=== PATIENT | female | born 1955 | race Caucasian/White ===

== ENCOUNTER 2020-06-04 20:22 | Emergency (ER) | payer BC ==
[2020-06-04] MEDS ORDERED: Sodium Chloride 0.9% 1,000 ML IV SCH ×2 (21:15→22:30)
--- NOTE | 2020-06-04 21:16 | EDM.PDOC ---
ED HPI GENERAL MEDICAL PROBLEM - General Chief Complaint: General Stated Complaint: LIGH HEADED Time Seen by Provider: 06/04/20 21:16 Source of Information: Reports: Patient History Limitations: Reports: No Limitations - History of Present Illness INITIAL COMMENTS - FREE TEXT/NARRATIVE: pt arrived with ahistory of being out on the [place] for about 6 hours. She had 3 beers and did not drink alot of other fluids. She came in and was sitting in the cabin which was fairly hot. She suddenly was staring off into space and then her head flopped to the side. She was like this for 3-4 minutes and then she was better. She did have a similar episode about 15 years ago. She did not have a headache. Her did not see seizure like activity. Onset: Today, Sudden Duration: Hour(s): Location: Reports: Generalized, Other (pt was very weak from the point that she had the episode. ) Associated Symptoms: Reports: Syncope - Related Data Allergies Allergy/AdvReac Type Severity Reaction Status Date / Time No Known Allergies Allergy Verified 06/04/20 20:50 Home Meds: Home Meds Aspirin [Aspir 81] 1 tab PO DAILY 06/04/20 [History] Calcium Carbonate [Calcium] 2 tab PO DAILY 06/04/20 [History] Cholecalciferol (Vitamin D3) [Vitamin D3] 1 tab PO DAILY 06/04/20 [History] Denosumab [Prolia] 1 dose INJECT ASDIRECTED 06/04/20 [History] Divalproex Sodium [Divalproex Sodium ER] 1 tab PO DAILY 06/04/20 [History] Lutein/Min/Vit C/Vit E Acetate [Ocuvite Lutein] 1 tab PO DAILY 06/04/20 [History] Rizatriptan [Maxalt HEAD CONCIERGE] 1 tab PO BID PRN 06/04/20 [History] Topiramate [Topamax] 2 tab PO DAILY 06/04/20 [History] Vilazodone [Viibryd] 1 tab PO DAILY 06/04/20 [History] atorvaSTATin Calcium [Atorvastatin Calcium] 1 tab PO DAILY 06/04/20 [History] Past Medical History HEENT History: Reports: Macular Degeneration Cardiovascular History: Reports: Angina, Other (See Below) Other Cardiovascular History: 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: Neurological History: Reports: Migraines Psychiatric History: Reports: Depression - Infectious Disease History Infectious Disease History: Reports: Chicken Pox, Mumps - Past Surgical History GI Surgical History: Reports: Colonoscopy Social & Family History - Family History Family Medical History: Noncontributory - Tobacco Use Smoking Status *Q: Never Smoker - Caffeine Use Caffeine Use: Reports: Coffee - Recreational Drug Use Recreational Drug Use: No ED ROS GENERAL - Review of Systems Review Of Systems: See Below Constitutional: Reports: Weakness HEENT: Reports: No Symptoms Respiratory: Reports: No Symptoms Cardiovascular: Reports: No Symptoms Endocrine: Reports: No Symptoms GI/Abdominal: Reports: No Symptoms : Reports: No Symptoms Musculoskeletal: Reports: No Symptoms Skin: Reports: No Symptoms Neurological: Reports: Syncope Psychiatric: Reports: Anxiety ED EXAM, GENERAL - Physical Exam Exam: See Below Free Text/Narrative:: pt arrived after having an episode of near syncope at the cabin. She had been out on the [place] about 6 hours and was warm. She did drink about 3 beers. She did not drink alot of fluids Exam Limited By: No Limitations General Appearance: Alert, No Apparent Distress, Anxious, Other (pupils are equal and reactive. ) Ears: Normal TMs Nose: Normal Inspection Throat/Mouth: Normal Inspection Head: Atraumatic Neck: Normal Inspection Respiratory/Chest: No Respiratory Distress Cardiovascular: Regular Rate, Rhythm GI/Abdominal: Soft, Non-Tender (Female) Exam: Deferred Rectal (Female) Exam: Deferred Back Exam: Normal Inspection Extremities: Normal Inspection Neurological: Alert, Oriented, Normal Cognition Psychiatric: Normal Affect Course - Vital Signs Last Recorded V/S: Last Vital Signs Temp 35.7 C L 06/04/20 20:58 Pulse 84 06/04/20 22:44 Resp 12 06/04/20 22:44 BP 128/59 L 06/04/20 22:44 Pulse Ox 98 06/04/20 22:44 Orthostatic Blood Pressure [ 124/67 Standing] Orthostatic Blood Pressure [ 115/70 Sitting] Orthostatic Blood Pressure [ 105/62 Supine] - Orders/Labs/Meds Orders: Active Orders 24 hr Category Date Time Status EKG Documentation Completion [RC] ASDIRECTED Care 06/04/20 21:15 Active Orthostatic Vital Signs [RC] ASDIRECTED Care 06/04/20 21:15 Active Sodium Chloride 0.9% [Normal Saline] 1,000 ml Med 06/04/20 21:15 Active IV ASDIRECTED Sodium Chloride 0.9% [Normal Saline] 1,000 ml Med 06/04/20 22:30 Active IV ASDIRECTED EKG 12 Lead [EK] Routine Ther 06/04/20 21:15 Ordered Medication Orders Sodium Chloride (Normal Saline) 1,000 mls @ 999 mls/hr IV ASDIRECTED PATRICIA Last Admin: 06/04/20 22:08 Dose: 999 mls/hr Documented by: KATE Sodium Chloride (Normal Saline) 1,000 mls @ 999 mls/hr IV ASDIRECTED PATRICIA Labs: Laboratory Tests 06/04/20 06/04/20 06/04/20 Range/Units 21:20 21:20 22:31 WBC 11.0 (4.5-11.0) K/uL RBC 3.38 (3.30-5.50) M/uL Hgb 10.5 L (12.0-15.0) g/dL Hct 32.5 L (36.0-48.0) % MCV 96 (80-98) fL MCH 31 (27-31) pg MCHC 32 (32-36) % Plt Count 198 (150-400) K/uL Neut % (Auto) 70 H (36-66) % Lymph % (Auto) 19 L (24-44) % [place] % (Auto) 8 H (2-6) % Eos % (Auto) 3 (2-4) % Baso % (Auto) 1 (0-1) % Sodium 142 (140-148) mmol/L Potassium 3.5 L (3.6-5.2) mmol/L Chloride 107 (100-108) mmol/L Carbon Dioxide 24 (21-32) mmol/L Anion Gap 14.5 H (5.0-14.0) mmol/L BUN 14 (7-18) mg/dL Creatinine 0.7 (0.6-1.0) mg/dL Est Cr Clr Drug Dosing 76.75 mL/min Estimated GFR (MDRD) > 60 (>60) Glucose 104 (74-106) mg/dL Calcium 8.0 L (8.5-10.1) mg/dL Iron 70 (50-170) ug/dL TIBC 231 L (250-450) ug/dl % Saturation 30 (20-55) % Total Bilirubin 0.3 (0.2-1.0) mg/dL AST 20 (15-37) U/L ALT 18 (12-78) U/L Alkaline Phosphatase 37 L (46-116) U/L Total Protein 6.0 L (6.4-8.2) g/dL Albumin 3.5 (3.4-5.0) g/dL Globulin 2.5 (2.3-3.5) g/dL Albumin/Globulin Ratio 1.4 (1.2-2.2) Urine Color (YELLOW) Urine Appearance (CLEAR) Urine pH (5.0-8.0) Ur Specific [place] (1.008-1.030) Urine Protein (NEGATIVE) mg/dL Urine Glucose (UA) (NEGATIVE) mg/dL Urine Ketones (NEGATIVE) mg/dL Urine Occult Blood (NEGATIVE) Urine Nitrite (NEGATIVE) Urine Bilirubin (NEGATIVE) Urine Urobilinogen (0.2-1.0) EU/dL Ur Leukocyte Esterase (NEGATIVE) Urine RBC (0-5) Urine WBC (0-5) Ur Epithelial Cells Amorphous Sediment Urine Bacteria Urine Mucus Ethyl Alcohol mg/dL 06/04/20 06/04/20 Range/Units 22:31 22:52 WBC (4.5-11.0) K/uL RBC (3.30-5.50) M/uL Hgb (12.0-15.0) g/dL Hct (36.0-48.0) % MCV (80-98) fL MCH (27-31) pg MCHC (32-36) % Plt Count (150-400) K/uL Neut % (Auto) (36-66) % Lymph % (Auto) (24-44) % [place] % (Auto) (2-6) % Eos % (Auto) (2-4) % Baso % (Auto) (0-1) % Sodium (140-148) mmol/L Potassium (3.6-5.2) mmol/L Chloride (100-108) mmol/L Carbon Dioxide (21-32) mmol/L Anion Gap (5.0-14.0) mmol/L BUN (7-18) mg/dL Creatinine (0.6-1.0) mg/dL Est Cr Clr Drug Dosing mL/min Estimated GFR (MDRD) (>60) Glucose (74-106) mg/dL Calcium (8.5-10.1) mg/dL Iron (50-170) ug/dL TIBC (250-450) ug/dl % Saturation (20-55) % Total Bilirubin (0.2-1.0) mg/dL AST (15-37) U/L ALT (12-78) U/L Alkaline Phosphatase (46-116) U/L Total Protein (6.4-8.2) g/dL Albumin (3.4-5.0) g/dL Globulin (2.3-3.5) g/dL Albumin/Globulin Ratio (1.2-2.2) Urine Color Yellow (YELLOW) Urine Appearance Clear (CLEAR) Urine pH 6.5 (5.0-8.0) Ur Specific [place] 1.020 (1.008-1.030) Urine Protein 30 H (NEGATIVE) mg/dL Urine Glucose (UA) Negative (NEGATIVE) mg/dL Urine Ketones Negative (NEGATIVE) mg/dL Urine Occult Blood Trace-intact H (NEGATIVE) Urine Nitrite Negative (NEGATIVE) Urine Bilirubin Negative (NEGATIVE) Urine Urobilinogen 0.2 (0.2-1.0) EU/dL Ur Leukocyte Esterase Small H (NEGATIVE) Urine RBC 0-5 (0-5) Urine WBC 0-5 (0-5) Ur Epithelial Cells Few Amorphous Sediment Rare Urine Bacteria Few Urine Mucus Not seen Ethyl Alcohol 52 mg/dL Meds: Medications Generic Name Dose Route Start Last Admin Trade Name Freq PRN Reason Stop Dose Admin Sodium Chloride 1,000 mls @ 999 mls/hr 06/04/20 21:15 06/04/20 22:08 Normal Saline IV 999 mls/hr ASDIRECTED PATRICIA Administration Sodium Chloride 1,000 mls @ 999 mls/hr 06/04/20 22:30 Normal Saline IV ASDIRECTED PATRICIA - Re-Assessments/Exams Free Text/Narrative Re-Assessment/Exam: 06/04/20 23:22 pt has been given 2 liters of fluid. She is feeling better. She is found to mildly anemic, She does not have a fever. She did have a cat scan of the head. 06/04/20 23:23 06/04/20 23:42 pt did have some orthostatic changes when she stood up. She mildly anemic. Her iron studies were not significantly abnormal. Departure - Departure Time of Disposition: 23:54 Disposition: Home, Self-Care 01 Condition: Fair Clinical Impression: Dehydration, Postural hypotension, Anemia - Discharge Information Referrals: PCP,None [Primary Care Provider] - Forms: ED Department Discharge Care Plan Goals: push fluids, have regular Dr check out the anemia . send a copy of lab work done today to show her Dr. Sepsis Event Note (ED) - Evaluation Sepsis Screening Result: No Definite Risk - Focused Exam Vital Signs: Vital Signs Temp Pulse Resp BP Pulse Ox 06/04/20 22:44 84 12 128/59 L 98 06/04/20 22:14 90 11 L 115/70 91 L 06/04/20 21:44 77 13 128/71 06/04/20 20:58 35.7 C L 71 16 110/62 99 06/04/20 20:49 35.7 C L 71 16 110/62 99 - My Orders Last 24 Hours: My Active Orders 06/04/20 21:15 EKG Documentation Completion [RC] ASDIRECTED Orthostatic Vital Signs [RC] ASDIRECTED Sodium Chloride 0.9% [Normal Saline] 1,000 ml IV ASDIRECTED EKG 12 Lead [EK] Routine 06/04/20 22:30 Sodium Chloride 0.9% [Normal Saline] 1,000 ml IV ASDIRECTED - Assessment/Plan Last 24 Hours: My Active Orders 06/04/20 21:15 EKG Documentation Completion [RC] ASDIRECTED Orthostatic Vital Signs [RC] ASDIRECTED Sodium Chloride 0.9% [Normal Saline] 1,000 ml IV ASDIRECTED EKG 12 Lead [EK] Routine 06/04/20 22:30 Sodium Chloride 0.9% [Normal Saline] 1,000 ml IV ASDIRECTED
--- NOTE | 2020-06-04 23:48 | CRLCT ---
INDICATION: Syncope TECHNIQUE: CT head without contrast. COMPARISON: None. FINDINGS: CSF spaces: Within normal limits for age. Brain parenchyma: The tran-white differentiation is normal. No sign of mass, hemorrhage, or midline shift. Skull base and calvarium: The visualized paranasal sinuses and mastoid air cells demonstrate no acute or significant findings. The visualized orbits are grossly unremarkable. No skull fractures. IMPRESSION: Unremarkable noncontrast head CT. Please note that all CT scans at this facility use dose modulation, iterative reconstruction, and/or weight-based dosing when appropriate to reduce radiation dose to as low as reasonably achievable. Dictated by Chong Swan MD @ Jun 04 2020 11:37PM Signed by Dr. Chong Swan @ Jun 04 2020 11:46PM
== END 2020-06-05 00:10 | disposition home or self-care (01) ==
LOC: JP.ED 20:22
DX: I95.1 Orthostatic hypotension (principal); E86.0 Dehydration; D64.9 Anemia, unspecified; F32.9 Major depressive disorder, single episode, unspecified; G43.909 Migraine, unspecified, not intractable, without status migrainosus; Z79.82 Long term (current) use of aspirin; Z79.899 Other long term (current) drug therapy
CPT/HCPCS: 36415; 70450; 80053; 80307; 81001; 83550; 85025; 93005; 93010; 96360; 99284; 99284-25; J7030

== ENCOUNTER 2020-06-10 21:13 | Emergency (ER) | payer OTHER, BC ==
--- NOTE | 2020-06-10 22:04 | EDM.PDOC ---
ED HPI GENERAL MEDICAL PROBLEM - General Chief Complaint: Genitourinary Problem Stated Complaint: POSSIBLE UTI Time Seen by Provider: 06/10/20 21:17 Source of Information: Reports: Patient History Limitations: Reports: No Limitations - History of Present Illness INITIAL COMMENTS - FREE TEXT/NARRATIVE: 64 yo female presents to er with dysuria. frequency has been present for mul tiple days with burning starting this afternoon. denies fever or chills. last UTI was over a year ago. vacationing in the area from [place] - Related Data Allergies Allergy/AdvReac Type Severity Reaction Status Date / Time No Known Allergies Allergy Verified 06/04/20 20:50 Home Meds: Home Meds Aspirin [Aspir 81] 1 tab PO DAILY 06/04/20 [History] Calcium Carbonate [Calcium] 2 tab PO DAILY 06/04/20 [History] Cholecalciferol (Vitamin D3) [Vitamin D3] 1 tab PO DAILY 06/04/20 [History] Denosumab [Prolia] 1 dose INJECT ASDIRECTED 06/04/20 [History] Divalproex Sodium [Divalproex Sodium ER] 1 tab PO DAILY 06/04/20 [History] Lutein/Min/Vit C/Vit E Acetate [Ocuvite Lutein] 1 tab PO DAILY 06/04/20 [History] Rizatriptan [Maxalt FLOOR SURFACER] 1 tab PO BID PRN 06/04/20 [History] Topiramate [Topamax] 2 tab PO DAILY 06/04/20 [History] Vilazodone [Viibryd] 1 tab PO DAILY 06/04/20 [History] atorvaSTATin Calcium [Atorvastatin Calcium] 1 tab PO DAILY 06/04/20 [History] Past Medical History HEENT History: Reports: Macular Degeneration Cardiovascular History: Reports: Angina, Other (See Below) Other Cardiovascular History: 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: Neurological History: Reports: Migraines Psychiatric History: Reports: Depression - Infectious Disease History Infectious Disease History: Reports: Chicken Pox, Mumps - Past Surgical History GI Surgical History: Reports: Colonoscopy Social & Family History - Family History Family Medical History: Noncontributory - Caffeine Use Caffeine Use: Reports: Coffee ED ROS GENERAL - Review of Systems Review Of Systems: See Below Constitutional: Denies: Fever, Chills, Fatigue Respiratory: Denies: Shortness of Breath, Wheezing Cardiovascular: Denies: Chest Pain GI/Abdominal: Reports: Abdominal Pain : Reports: Dysuria, Frequency ED EXAM, GI/ABD - Physical Exam Exam: See Below Exam Limited By: No Limitations General Appearance: Alert, WD/WN, No Apparent Distress Head: Atraumatic, Normocephalic Respiratory/Chest: No Respiratory Distress GI/Abdominal Exam: Soft, Tender (mild suprapubic tenderness) Back Exam: No: CVA Tenderness (R), CVA Tenderness (L) Neurological: Alert, Oriented Psychiatric: Normal Affect, Normal Mood Skin Exam: Warm, Dry, Intact Lymphatic: No Adenopathy Course - Vital Signs Last Recorded V/S: Last Vital Signs Temp 36.3 C 06/10/20 21:40 Pulse 82 06/10/20 21:40 Resp 16 06/10/20 21:40 BP 122/72 06/10/20 21:40 Pulse Ox 100 06/10/20 21:40 - Orders/Labs/Meds Orders: Active Orders 24 hr Category Date Time Status CULTURE URINE [RM] Stat Lab 06/10/20 22:07 Received Labs: Laboratory Tests 06/10/20 Range/Units 21:26 Urine Color [place] A (YELLOW) Urine Appearance Turbid A (CLEAR) Urine RBC Semi-packed H (0-5) Urine WBC Packed H (0-5) Ur Epithelial Cells Rare Amorphous Sediment Not seen Urine Bacteria Many Urine Mucus Not seen Urinalysis Comment Departure - Departure Time of Disposition: 22:02 Disposition: Home, Self-Care 01 Condition: Good Clinical Impression: UTI, Urinary tract infectious disease - Discharge Information *PRESCRIPTION DRUG MONITORING PROGRAM REVIEWED*: Not Applicable *COPY OF PRESCRIPTION DRUG MONITORING REPORT IN PATIENT LUIS: Not Applicable Instructions: Urinary Tract Infection, Adult, [id number] Referrals: PCP,None [Primary Care Provider] - Forms: ED Department Discharge Additional Instructions: macrobid 100 mg twice daily for 7 days increase fluid intake with goal of 1.5-2 liters per day Sepsis Event Note (ED) - Focused Exam Vital Signs: Vital Signs Temp Pulse Resp BP Pulse Ox 06/10/20 21:40 36.3 C 82 16 122/72 100 - My Orders Last 24 Hours: My Active Orders 06/10/20 22:07 CULTURE URINE [RM] Stat - Assessment/Plan Last 24 Hours: My Active Orders 06/10/20 22:07 CULTURE URINE [RM] Stat
== END 2020-06-10 22:32 | disposition home or self-care (01) ==
LOC: JP.ED 21:13
DX: N39.0 Urinary tract infection, site not specified (principal); F32.9 Major depressive disorder, single episode, unspecified; Z79.82 Long term (current) use of aspirin; Z79.899 Other long term (current) drug therapy
CPT/HCPCS: 81001; 87086; 87088; 87186; 99283